=== PATIENT | male | born 1945 | race Caucasian/White ===

== ENCOUNTER 2021-10-26 17:04 | Emergency (ER) | payer BC | END 2021-10-26 17:47 | disposition home or self-care (01) | LOC: NAV ERS 17:04 | DX: Z47.89 Encounter for other orthopedic aftercare (principal); I10 Essential (primary) hypertension; E78.5 Hyperlipidemia, unspecified; Z94.0 Kidney transplant status; Z98.890 Other specified postprocedural states | CPT/HCPCS: 99282 ==

== ENCOUNTER 2022-07-25 15:25 | Outpatient (CLI) | payer BC | END 2022-07-25 15:26 | disposition home or self-care (01) | LOC: NAV RAD 15:25 | PROVIDERS: ATTEND Surgery | DX: M54.12 Radiculopathy, cervical region (principal) | CPT/HCPCS: 72040 ==

== ENCOUNTER 2023-03-30 17:56 | Emergency (ER) | payer OTHER, BC ==
[2023-03-30] MEDS ORDERED: Lidocaine 1% (PF) 30 ML VIAL ONE (18:33)
[2023-03-30] MEDS ORDERED: Boostrix 0.5 ML (Tdap) VIAL (>/=7 yrs of age) ONE (18:38)
== END 2023-03-30 19:48 | disposition home or self-care (01) ==
LOC: NAV ERS 17:56
DX: S01.111A Laceration without foreign body of right eyelid and periocular area, initial encounter (principal); E78.5 Hyperlipidemia, unspecified; E03.9 Hypothyroidism, unspecified; I10 Essential (primary) hypertension; W01.0XXA Fall on same level from slipping, tripping and stumbling without subsequent striking against object, initial encounter
CPT/HCPCS: 12011; 70450; 72125; 90471; 90715; J2001